=== PATIENT | male | born 1975 | race Caucasian/White ===

== ENCOUNTER 2024-09-12 06:29 | Outpatient (CLI) | payer OTHER, SELFPAY ==
--- NOTE | ~2024-09-12 | CT_ITS ---
CT Scan of the Chest without Contrast: Clinical Indication: Lung cancer screening, nicotine dependence Technique: Contiguous sections were acquired throughout the chest without intravenous contrast. Dose reduction technique was used on this scan by utilizing automated exposure control and iterative recon struction technique. The dose-length product (DLP) was 155.52 mGy-cm. Findings: There is no evidence of any significant mediastinal, hilar or axillary lymphadenopathy. The mediastin al soft tissues appear normal. There is no evidence of pleural or pericardial effusion. Calcified left upper lobe granuloma present. No other pulmonary nodule seen. Images through the upper abdomen reveal diffuse hepatic steatosis. Impression: Lung RADS 2: Benign appearance. 12 month follow-up screening CT advised. Reviewed, dictated and finalized at location . Impression: Lung RADS 2: Benign appearance. 12 month follow-up screening CT advised.
--- OUTSIDE RECORDS SUMMARY | 2024-09-12 06:33 | XMS_ITS | Clinical Summary ---
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[employer] Gender Identity Not on file Sexual Orientation Not on file Plan of Treatment Health Maintenance Due Date Last Done Comments Hepatitis C Virus (HCV) Screening 1973 TdaP Immunization 1973 Hepatitis B Immunization (1 of 3 - 19+ 3-dose series) 1992 Colonoscopy 2018 Colorectal Cancer Screening 2018 Cologuard 2023 Immunochemical Fecal Occult Blood 2023 Pneumococcal Immunization (5 0+ years) (1 of 1 - PCV) 2023 Zoster Immunization (1 of 2) 2023 Influenza Immunization (#1) 2024 SARS-COV-2 Immunization ( - season) 2024 Respiratory Syncytial Virus (RSV) Immunization (Adult) (1 - 1-dose 75+ series) 2048 Meningococcal Immunization (ACWY) Aged Out No longer eligible based on patient's age to complete this topic Pneumococcal Immunization Combined Aged Out No longer eligible based on patient's age to complete this topic Rotavirus Immunization Aged Out No lo nger eligible based on patient's age to complete this topic
== END 2024-09-12 06:30 | disposition home or self-care (01) ==
PROVIDERS: PCP Family Medicine; Visit Provider Family Medicine
DX: Z12.2 Encounter for screening for malignant neoplasm of respiratory organs (principal); Z87.891 Personal history of nicotine dependence
CPT/HCPCS: 71271

== ENCOUNTER 2025-02-14 08:54 | Emergency (ER) | payer OTHER, SELFPAY ==
[2025-02-14 09:06] VITALS: BP 149/79; PULSE 84; RESP 20; TEMP 37; O2SAT 93
--- NOTE | 2025-02-14 09:53 | ED_ITS ---
HPI - General Adult General Chief complaint: Burn/Smoke Inhalation Stated complaint: burn on right arm Source: patient Mode of arrival: ambulatory Limitations: no limitations and other History of Present Illness HPI narrative: Pt presents for evaluation of a burn wound to the right wrist that occurred earlier today. He was at work and states that hot coolant splashed on his right wrist. He has redness to the right wrist and is now developing a blister in that area. He rates his pain as 7/10 in severity. He is not diabetic. He is ambidextrous. No loss of ROM. No paresthesias. He has not taken any medic ations to treat his symptoms. He is not sure when his last tetanus was. Related Data Allergies Allergy/AdvReac Type Severity Reaction Status Date / Time No Known Allergies Allergy Verified 02/14/25 08:55 Review of Systems Review of Systems: CONSTITUTIONAL: Denies fever, chills, or sweats. EYES: Denies visual changes, redness, or discharge. ENT: Denies rhinorrhea, congestion, sore throat, or otalgia. CARDIOVASCULAR: Denies chest pain, palpitations, or edema. RESPIRATORY: Denies cough or dyspnea. GASTROINTESTINAL: Denies abdominal pain, nausea, vomiting, or diarrhea. GENITOURINARY: Denies dysuria or hematuria. SKIN: Reports redness to right wrist with one blister forming MUSCULOSKELETAL: Reports right wrist pain NEUROLOGIC: Denies headache, numbness, dizziness, or weakness. PSYCHIATRIC: Denies anxiety or depression. [facility] Past Medical History Medical History Anxiety GERD (gastroesophageal reflux disease) HLD (hyperlipidemia) HTN (hypertension) IFG (impaired fasting glucose) Surgical History Surgical History (Updated 02/14/25 @ 10:02 by MILO Shankar, ) H/O right wrist surgery Family History Family History Mother Hypertension Social History Social History Social History: Smoking status: Former smoker Tobacco type: cigarettes Second hand tobacco smoke exposure: No Smoking end date: 07/06/17 Alcohol intake: current Substance use: never Substance use type: does not use Do You Feel Safe in your Home?: Yes Lack of Transportation: No Lack of Food: Never True Current Housing: I Have Housing Concerned About Future Housing: No Difficulty Paying Gas/Electric Bills: No Difficulty Paying for Meds: No Currently Unemployed: No Education: Don't Know Difficulty w/ Childcare or Family Care: No Living arrangements: with family Occupation/Education: occupation Gender identity (if verbalized by the patient): Male Sexual Orientation (if Verbalized by the Patient): Straight or Heterosexual Exam Narrative: GENERAL: Well-appearing, well-nourished, and in no acute distress. HEAD: Normocephalic, atraumatic. EYES: PERRLA and EOMI. ENT: Nares clear, no rhinorrhea or epistaxis. Mucous membranes moist. Oropharynx without tonsillar hypertrophy exudate or other lesions. Bilateral TMs pearly oakley nonbulging NECK: Supple. No adenopathy or masses. No carotid bruits or JVD CHEST: Clear to auscultation. No respiratory distress. No wheezes rales or rhonchi HEART: Regular rate and rhythm. No murmur heard. Normal peripheral pulses. ABDOMEN: Soft, nontender, nondistended, normal active bowel sounds. EXTREMITIES: Normal range of motion. No edema. SKIN: there is a linear surgical scar noted to the right wrist From previous surgery with 7 x 7 cm area of surrounding erythema. There is a forming blister in the area. NEURO: No focal deficits. Alert and oriented x3. PSYCH: Normal mood and affect. Course Course Emergency Course: this is a 49-year-old male who presented for evaluation of a burn wound to the right wrist. I recommended tetanus, which he declined. He is a former blister in the area. Recommend cool compresses, increased hydration, and will provide him with a prescription for Silvadene that he can use of blisters continue to present. He should follow up with primary care or workman's comp(he said he is not pursuing workman's comp case) and should go to the ER for worsening symptoms. Pt in agreement with plan of care. Level of Care: Express Care Visit Vital Signs Vital signs: Vital Signs Temperature 37.0 C 02/14/25 09:06 Pulse Rate 84 02/14/25 09:06 Respiratory Rate 20 02/14/25 09:06 Blood Pressure 149/79 H 02/14/25 09:06 Pulse Oximetry 93 02/14/25 09:06 Oxygen Delivery Room Air 02/14/25 09:06 Temperature 37.0 C 02/14/25 09:06 Pulse Rate 84 02/14/25 09:06 Respiratory Rate 20 02/14/25 09:06 Blood Pressure 149/79 H 02/14/25 09:06 Pulse Oximetry 93 02/14/25 09:06 Oxygen Delivery Room Air 02/14/25 09:06 Medical Decision Making Vital Signs Vital Signs: Vital Signs Temperature 37.0 C 02/14/25 09:06 Pulse Rate 84 02/14/25 09:06 Respiratory Rate 20 02/14/25 09:06 Blood Pressure 149/79 H 02/14/25 09:06 Pulse Oximetry 93 02/14/25 09:06 Oxygen Delivery Room Air 02/14/25 09:06 Temperature 37.0 C 02/14/25 09:06 Pulse Rate 84 02/14/25 09:06 Respiratory Rate 20 02/14/25 09:06 Blood Pressure 149/79 H 02/14/25 09:06 Pulse Oximetry 93 02/14/25 09:06 Oxygen Delivery Room Air 02/14/25 09:06 Discharge Plan Discharge Clinical Impression: Partial thickness burn of upper extremity Qualifiers: Encounter type: initial encounter Upper extremity location: wrist Laterality: right Qualified Code(s): T23.271A - Burn of second degree of right wrist, initial encounter Patient Disposition: Home Condition: Stable Instructions: Antibiotic Form, Superficial Burn (DC) Patient Language: Vincentian Prescriptions: New silver sulfadiazine [Silvadene] 1 % cream 1 applic topical BID Qty: 85 0RF Rx Instructions: apply a 1.5 mm thickness No Action amlodipine 10 mg tablet 10 mg PO DAILY Qty: 90 2RF hydrochlorothiazide 25 mg tablet See Rx Instructions .ROUTE .COMPLEX Qty: 90 2RF Dose Instruction: TAKE 1 TABLET BY MOUTH EVERY DAY Rx Instructions: TAKE 1 TABLET BY MOUTH EVERY DAY lisinopril 40 mg tablet 40 mg PO DAILY Qty: 90 2RF metoprolol succinate 50 mg tablet extended release 24 hr See Rx Instructions .ROUTE .COMPLEX Qty: 90 2RF Dose Instruction: TAKE 1 TABLET BY MOUTH DAILY Rx Instructions: TAKE 1 TABLET BY MOUTH DAILY omeprazole 40 mg capsule,delayed release(DR/EC) 40 mg PO DAILY Qty: 90 2RF buspirone 10 mg tablet 10 mg PO BID PRN (Reason: anxiety) Qty: 180 1RF Follow-up/Referrals: Nestor Sarmiento MD [Primary Care Provider] - Time of Disposition: 09:36
== END 2025-02-14 09:40 | disposition home or self-care (01) ==
PROVIDERS: Emergency Provider Nurse Practitioner; PCP Family Medicine
DX: T23.271A Burn of second degree of right wrist, initial encounter (principal); T31.0 Burns involving less than 10% of body surface; E78.5 Hyperlipidemia, unspecified; I10 Essential (primary) hypertension; Z87.891 Personal history of nicotine dependence; X12.XXXA Contact with other hot fluids, initial encounter; Y99.0 Civilian activity done for income or pay
CPT/HCPCS: 99213; G0463